=== PATIENT | female | born 1985 | race Two or more races ===

== ENCOUNTER 2018-06-29 17:15 | Observation (INO) | payer MEDICAID, SELFPAY ==
[2018-06-29 17:18] VITALS: BP 129/76; PULSE 94; RESP 16; TEMP 37.1; O2SAT 96; BMI 40.0
--- NOTE | 2018-06-29 17:23 | ED.VIS.GEN ---
History of Present Illness Chief Complaint: General Illness Detail of Chief Complaint: Not able to care for self. Informant: - - Information from supply chain program manager, charge nurse and case management Onset: - - Apparently is undergoing cardiac catheterization at [facility], which is located in [facility]. 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 The home health service is unable to provide 24-hour supervision and reason patient presents to the emergency department Context: Sudden Onset - Reportedly sudden per home health service Timing: Continuous Quality: Inability to care for self Location: Home Current Severity: Moderate Maximum Severity: Moderate Worsened by: Absence of Relieved by: Not applicable Associated Symptoms: Not applicable Narrative: Patient is a 33-year-old woman who is cognitively impaired and has home health during the day for supervision. is at [facility] undergoing emergent cardiac catheterization. Home health services unable to provide 24-hour safety and care. Patient was brought to the emergency department for placement. Spoke with Martha, ER case management and patient will be a social admission. Prior similar symptoms: No Recent Illness/Hospitalization: No - Past Medical History (1) Traumatic brain injury Status: Chronic Past Medical History - Allergies and Home Meds Allergies/Adverse Reactions: Allergies albuterol Allergy (Verified 06/29/18 18:03) Anaphylaxis Penicillins Allergy (Verified 06/29/18 18:03) Anaphylaxis Past Medical History: - - [place] brain injury Lives: Spouse/ Significant Other Smoking Status: Never smoker Alcohol: None Review of Systems ROS: Unable to Obtain - She has no complaints. Patient was brought to the hospital for her safety and inability of halfway health to provide supervision and care until is discharged from facility in [facility]. Physical Exam Vital Signs/Narrative: Vital Signs Temp Pulse Resp BP Pulse Ox 06/29/18 17:18 98.7 F 94 16 129/76 H 96 General: Well nourished, Well developed, Obese, No Acute Distress Eyes: Perrl, EOMI. Negative for: Pale conjunctiva, Scleral icterus ENT: Moist mucous membranes, No rhinorrhea, TM's clear Neck: Supple, Nontender, No lymphadenopathy, No JVD Cardiovascular: Regular rate, Regular rhythm, No murmurs, Normal S1, Normal S2 Respiratory: No distress, CTA bilaterally, Chest nontender Abdomen: Soft, Nontender, Nondistended, Normal bowel sounds Rectal: Deferred Extremities: Nontender, No edema Skin: Normal color, No rash Neurological: Alert, Cranial nerves II-XII grossly intact, Normal Strength, Normal Sensation. Negative for: Oriented x3 Psychological: - - Patient giggles inappropriately, patient appears anxious. Patient was tearful as well. Diagnostic/Tx/Re-eval - Medical Decision Making Spoke with case management. Attempt made at emergent placement for supervision. This was unsuccessful. Patient presents for admission to hospital for safety and supervision. The hospitalist was paged for observation status for safety. ED Disposition - Plan for ED Patient: Disposition: Acute Care Hospital [facility] Diagnosis: Traumatic brain injury, Disorientation, unspecified, Failure to thrive in adult
--- NOTE | 2018-06-29 17:25 | CM.ED ---
Social Work Assessment Referral Date: 06/29/18 Date of Assessment: 06/29/18 Informant: NURSING AND [facility] REPRESENTATIVES, JEMAL FRANK-DIRECTOR OF CORPORATE MARKETING [phone] AND PSYCHIATRY RESIDENT-STEPH SABILLON [phone]. Reason for Consult: D/C PLANNING/RESPITE CARE Information obtained from: JEMAL FRANK AND STEPH SABILLON WITH [facility] WA[facility]. Living Arrangements: PATIENT LIVES HOME WITH , AMITA YOUNGBLOOD [phone]. Employment/Financial: DISABLED Supports: PATIENT HAS SUPPORT FROM AND WAIVER SERVICES. Social/Family Stressors: PER STEPH SABILLON, WAS EMERGENTLY ADMITTED THIS DAY TO [facility] FOR HEART CATH. PATIENT WITH HX OF TBI AND IS UNABLE TO STAY IN THE HOME WITHOUT 24 HOUR SUPERVISION. Mental Health History: UNKNOWN AT THIS TIME Substance Abuse History: UNKNOWN AT THIS TIME Interventions: UPPER CUTTER OUT ASSESSMENT CALL TO [facility] TO DISCUSS CASE AND PLAN OF CARE Assessment: WHILE PATIENT WAS EN ROUTE TO HOSPITAL, NURSING RECEIVED CALL FROM [facility] INFORMING THAT PATIENT IS NEEDING ADMISSION D/T COGNITIVE ISSUES AND UNABLE TO SAFELY D/C BACK HOME ALONE. NURSE WAS INFORMED IS IN THE HOSPITAL FOR HEART CATH AND PATIENT REQUIRES 24 HOUR SUPERVISION. THIS WORKER CALLED [facility] AND WAS PUT IN CONTACT WITH PATIENT'S DIRECTOR OF CORPORATE MARKETING, JEMAL FRANK. PER JEMAL, IT IS EMERGENT THAT PATIENT BE PLACED AND THIS WAS THE RESPITE PLAN. REQUESTED TO SPEAK WITH A PSYCHIATRY RESIDENT REGARDING CONCERNS PATIENT WOULD NOT MEET CRITERIA FOR ADMISSION. SPOKE WITH [facility] PSYCHIATRY RESIDENT, STEPH SABILLON WHO REPORTED WAS UNABLE TO GET RESPITE SET UP FOR PATIENT IT WAS SO LATE IN THE DAY. STEPH SERRANO SPOKE WITH PATIENT'S PRIMARY CARE PHYSICIAN, DR. SHUKLA WHO WAS UNABLE TO DIRECTLY ADMIT PATIENT AND WAS HAPPY SHE WAS COMING TO THE ED FOR PLACEMENT. INFORMED STEPH WE WOULD BE UNABLE TO OBTAIN A LEVEL OF CARE AT THIS TIME. STEPH STATING PATIENT REQUIRES ADMISSION SHE IS UNABLE TO SAFELY RETURN HOME. CASE WAS DISCUSSED WITH CHAR FILTER TANK TENDER OF UPPER CUTTER OUT AND DR. HENNESSY. THIS WORKER ATTEMPTED TO CONTACT PATIENT'S , AMITA WITH PHONE NUMBER PROVIDED BY STEPH. MESSAGE LEFT AT THIS TIME. PLAN: ADMIT
--- NOTE | 2018-06-29 17:27 | ED.DCSUM_ITS ---
History of Present Illness Chief Complaint: General Illness Detail of Chief Complaint: Not able to care for self. Informant: - - Information from detailer, charge nurse and case management Onset: - - Apparently is undergoing cardiac catheterization at [facility], which is located in [facility]. 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 The home health service is unable to provide 24- hour supervision and reason patient presents to the emergency department Context: Sudden Onset - Reportedly sudden per home health service Timing: Continuous Quality: Inability to care for self Location: Home Current Severity: Moderate Maximum Severity: Moderate Worsened by: Absence of Relieved by: Not applicable Associated Symptoms: Not applicable Narrative: Patient is a 33-year-old woman who is cognitively impaired and has home health during the day for supervision. is at [facility] undergoing emergent cardiac catheterization. Home health services unable to provide 24-hour safety and care. Patient was brought to the emergency department for placement. Spoke with Martha, ER case management and patient will be a social admission. Prior similar symptoms: No Recent Illness/Hospitalization: No - Past Medical History (1) Traumatic brain injury Status: Chronic Past Medical History - Allergies and Home Meds Allergies/Adverse Reactions: Allergies albuterol Allergy (Verified 06/29/18 18:03) Anaphylaxis Penicillins Allergy (Verified 06/29/18 18:03) Anaphylaxis Past Medical History: - - [place] brain injury Lives: Spouse/ Significant Other Smoking Status: Never smoker Alcohol: None Review of Systems ROS: Unable to Obtain - She has no complaints. Patient was brought to the hospital for her safety and inability of custodial health to provide supervision and care until is discharged from facility in [facility]. Physical Exam Vital Signs/Narrative: Vital Signs Temp Pulse Resp BP Pulse Ox 06/29/18 17:18 98.7 F 94 16 129/76 H 96 General: Well nourished, Well developed, Obese, No Acute Distress Eyes: Perrl, EOMI. Negative for: Pale conjunctiva, Scleral icterus ENT: Moist mucous membranes, No rhinorrhea, TM's clear Neck: Supple, Nontender, No lymphadenopathy, No JVD Cardiovascular: Regular rate, Regular rhythm, No murmurs, Normal S1, Normal S2 Respiratory: No distress, CTA bilaterally, Chest nontender Abdomen: Soft, Nontender, Nondistended, Normal bowel sounds Rectal: Deferred Extremities: Nontender, No edema Skin: Normal color, No rash Neurological: Alert, Cranial nerves II-XII grossly intact, Normal Strength, Normal Sensation. Negative for: Oriented x3 Psychological: - - Patient giggles inappropriately, patient appears anxious. Patient was tearful as well. Diagnostic/Tx/Re-eval - Medical Decision Making Spoke with case management. Attempt made at emergent placement for supervision. This was unsuccessful. Patient presents for admission to hospital for safety and supervision. The hospitalist was paged for observation status for safety. ED Disposition - Plan for ED Patient: Disposition: Acute Care Hospital [facility] Diagnosis: Traumatic brain injury, Disorientation, unspecified, Failure to thrive in adult
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
[2018-06-29 18:55] VITALS: BMI 38.9
[2018-06-29 19:01] VITALS: BP 129/73; PULSE 98; RESP 16; TEMP 36.6; O2SAT 96
[2018-06-29] MEDS: Acetaminophen 325 MG Tablet 650 MG PO (20:06)
[2018-06-29 20:20] LABS: Absolute Lymphocyte Count 2.62 X10^3/ul (0.83-4.51); Absolute Neutrophil Count 8.1 X10^3/uL (2.0-7.7); Basophil# 0.05 X10^3/uL; Basophil% 0.4 % (0-1); Eosinophil# 1.14 X10^3/uL; Eosinophils% 8.7 % (0-5); Hematocrit 42.5 % (37-47); Hemoglobin 13.8 g/dl (12.0-15.0); Lymphocyte # 2.62 X10^3/ul (4.0); Lymphocyte % 20.1 % (19-41); Mean Corp Hgb Conc 32.5 g/gl (32-36); Mean Corpuscular Hgb 30.7 pg (27.0-32.0); Mean Corpuscular Volume 94.7 fL (81-99); Mean Platelet Vol. 10.7 fl (6.2-12.0); Monocyte# 0.96 X10^3/uL; Monocyte% 7.4 % (0-10); Neutrophil % 62.2 % (47-70); Platelet Count 236 K/mm3 (150-450); RBC Distribution Width CV 13.6 % (11.6-14.6); RBC Distribution Width SD 46.7 fl (35.1-43.9); Red Blood Count 4.49 M/mm3 (4.2-5.4)
[2018-06-29 20:21] LABS: POSITIVE COUNT NO; POSITIVE DIFFERENTIAL NO; POSITIVE MORPHOLOGY NO
[2018-06-29 20:30] LABS: Anion Gap 5 (5-15); BUN 11 mg/dL (7-18); BUN/Creat Ratio 13.8 RATIO (10-20); Calcium,Total 8.1 mg/dL (8.5-10.1); Chloride 106 mmol/L (98-107); EST Glomerular Filtration Rate 87 mL/min (>60); Est Glom Filt Rate - Afr Amer 106 mL/min (>60); Estimated Creatinine Clearance 96.36 ml/min; Glucose 109 mg/dL (74-106); Potassium 4.2 mmol/L (3.5-5.1); Sodium Level 138 mmol/L (136-145)
[2018-06-29] MEDS: Ziprasidone HCl 20 MG Capsule 80 MG PO (21:40)
[2018-06-29] MEDS: Divalproex Sodium 250 MG Tablet 1000 MG PO (21:41)
[2018-06-29] MEDS: clonazePAM 1 MG Tablet PO (21:41)
[2018-06-29 21:55] VITALS: BP 129/79; PULSE 103; RESP 16; TEMP 36.8; O2SAT 95
[2018-06-30 05:43] VITALS: BP 126/81; PULSE 93; RESP 14; TEMP 36.2; O2SAT 94
--- NOTE | 2018-06-30 06:57 | NURSING ---
Santosh, , called in @ this time for update on . States he had a heart cath yesterday and no blockage was found. He is having an echo this AM and if all is OK will be discharged today. He would like to pick his up and not have her go to a [facility]. multifocal button generator updated.
--- NOTE | 2018-06-30 08:51 | NURSING ---
into pt's room as pt upset and demanding to talk with the physician states she waNts to see him now or she's going to go find him in the hospital. pt upset stating waNting to go home. Message sent to regarding this. then attempted to de-esculate situation. verbal conversation had for approximately 15min and assisted with calling pt's for her. emotional. tearful. emotional support given. pt more cooperate and relaxed.
--- NOTE | 2018-06-30 09:32 | PCM.PN.HOSP ---
Patient Problems: Active and Suspected Problems (Last Updated 06/29/18 @ 18:36 by Bairon Mendoza DO) Disorientation, unspecified (Acute) Failure to thrive in adult (Acute) Subjective: She is currently at her baseline doing well. No issues overnight Vitals/I&O's: Vital Signs Temp Pulse Resp BP Pulse Ox 97.2 F L 93 14 126/81 H 94 06/30/18 05:43 06/30/18 05:43 06/30/18 05:43 06/30/18 05:43 06/30/18 05:43 Oxygen Delivery Method Room Air Weight: 249 lb Body Mass Index (BMI) 38.9 Intake and Output for Last 24 Hours 06/28/18 06/29/18 06/30/18 23:59 23:59 23:59 Intake Total 500 / 500 300 / 300 Output Total 100 / 100 200 / 200 Balance 400 / 400 100 / 100 General: Alert, Oriented x3, Cooperative, No apparent distress HEENT: Atraumatic, PERRLA, EOMI, Normocephalic Oral: Moist Mucosa Neck: Supple, No JVD, Trachea Midline Lungs: Clear to auscultation, Normal air movement, No rhonchi, No wheeze, No rales Cardiovascular: Regular rate, Regular Rhythm, Normal S1, Normal S2, No murmurs Abdomen: Soft, Non Tender, Non-Distended, No Hepato-splenomegaly Extremities: No edema, Capillary Refill Less than 3 Seconds Skin: No rashes, No breakdown Neurological: Neuro grossly intact, Sensory exam intact to light touch and pain Psych/Mental Status: Normal Affect, Appropriate Laboratory Results 06/29/18 20:00: WBC 13.0 H, RBC 4.49, Hgb 13.8, Hct 42.5, MCV 94.7, MCH 30.7, MCHC 32.5, RDW 13.6, RDW Differential 46.7 H, Plt Count 236, MPV 10.7, Immature Gran % (Auto) 1.200 H, Neut % (Auto) 62.2, Lymph % (Auto) 20.1, [place] % (Auto) 7.4, Eos % (Auto) 8.7 H, Baso % (Auto) 0.4, Absolute Neuts (auto) 8.1 H, Absolute Lymphs (auto) 2.62, Total Counted Not Reportable 06/29/18 20:00: Sodium 138, Potassium 4.2, Chloride 106, Carbon Dioxide 27.0, Anion Gap 5, BUN 11, Creatinine 0.80, Estim Creat Clear Calc 96.36, Est GFR (MDRD) Af Amer 106, Est GFR (MDRD) Non-Af 87, BUN/Creatinine Ratio 13.8, Glucose 109 H, Calcium 8.1 L Current Medications Acetaminophen (Tylenol) 650 mg PO Q6H PRN PRN PRN Reason: Mild Pain (1-3)/Temp > 100.7 F Last Admin: 06/29/18 20:06 Dose: 650 mg Albuterol Sulfate (Ventolin Aerosols) 2.5 mg INHALATION Q2H PRN PRN PRN Reason: SOB/WHEEZING Clonazepam (Klonopin) 1 mg PO BID [facility] Last Admin: 06/29/18 21:41 Dose: 1 mg Dextrose (D50w Syringe) 0 gm IV X1 PRN; Protocol PRN Reason: Hypoglycemia Divalproex Sodium (Depakote) 1,000 mg PO BID [facility] Last Admin: 06/29/18 21:41 Dose: 1,000 mg Escitalopram Oxalate (Lexapro) 20 mg PO DAILY [facility] Fluoxetine HCl (Prozac) 20 mg PO DAILY [facility] Glucagon () 1 mg IM .X1 PRN PRN Reason: Hypoglycemia Ibuprofen (Motrin) 600 mg PO Q6H PRN PRN PRN Reason: MILD PAIN (1-3/10) Lorazepam (Ativan) 0.5 mg PO Q8H PRN PRN PRN Reason: ANXIETY Ondansetron HCl (Zofran) 4 mg IV Q8H PRN PRN PRN Reason: NAUSEA/VOMITING Polyethylene Glycol (Miralax) 17 gm PO DAILY [facility] Ziprasidone (Geodon) 80 mg PO BID [facility] Last Admin: 06/29/18 21:40 Dose: 80 mg Medical Necessity - Tobacco Use Smoking Status: Never smoker Assessment/Plan All Active Problems (Last Updated 06/29/18 @ 18:36 by Bairon Mendoza DO) Disorientation, unspecified (Acute) Failure to thrive in adult (Acute) 1. Inability to complete ADLs/traumatic brain injury/anxiety/depression -She usually has 8-hour nursing during the day and her takes care of her at night, however he is currently in the hospital getting a heart procedure heart evaluation -She is unable to complete ADLs at home unsupervised -We will continue with her Lexapro, Depakote, Prozac, clonazepam 2. Dysuria -Urinalysis and urine culture are pending to be collected -If positive will start on antibiotic and this may hopefully allow her to improve and functionality if UTI was the cause of her derangement DVT: Ambulation Code Visit OBSV E&M: 48390 Initial observation care L2
--- NOTE | 2018-06-30 09:35 | PN_ITS ---
Patient Problems: Active and Suspected Problems (Last Updated 06/29/18 @ 18:36 by Bairon Mendoza DO) Disorientation, unspecified (Acute) Failure to thrive in adult (Acute) Subjective: She is currently at her baseline doing well. No issues overnight Vitals/I&O's: Vital Signs Temp Pulse Resp BP Pulse Ox 97.2 F L 93 14 126/81 H 94 06/30/18 05:43 06/30/18 05:43 06/30/18 05:43 06/30/18 05:43 06/30/18 05:43 Oxygen Delivery Method Room Air Weight: 249 lb Body Mass Index (BMI) 38.9 Intake and Output for Last 24 Hours 06/28/18 06/29/18 06/30/18 23:59 23:59 23:59 Intake Total 500 / 500 300 / 300 Output Total 100 / 100 200 / 200 Balance 400 / 400 100 / 100 General: Alert, Oriented x3, Cooperative, No apparent distress HEENT: Atraumatic, PERRLA, EOMI, Normocephalic Oral: Moist Mucosa Neck: Supple, No JVD, Trachea Midline Lungs: Clear to auscultation, Normal air movement, No rhonchi, No wheeze, No rales Cardiovascular: Regular rate, Regular Rhythm, Normal S1, Normal S2, No murmurs Abdomen: Soft, Non Tender, Non-Distended, No Hepato-splenomegaly Extremities: No edema, Capillary Refill Less than 3 Seconds Skin: No rashes, No breakdown Neurological: Neuro grossly intact, Sensory exam intact to light touch and pain Psych/Mental Status: Normal Affect, Appropriate Laboratory Results 06/29/18 20:00: WBC 13.0 H, RBC 4.49, Hgb 13.8, Hct 42.5, MCV 94.7, MCH 30.7, MCHC 32.5, RDW 13.6, RDW Differential 46.7 H, Plt Count 236, MPV 10.7, Immature Gran % (Auto) 1.200 H, Neut % (Auto) 62.2, Lymph % (Auto) 20.1, [place] % (Auto) 7.4, Eos % (Auto) 8.7 H, Baso % (Auto) 0.4, Absolute Neuts (auto) 8.1 H, Absolute Lymphs (auto) 2.62, Total Counted Not Reportable 06/29/18 20:00: Sodium 138, Potassium 4.2, Chloride 106, Carbon Dioxide 27.0, Anion Gap 5, BUN 11, Creatinine 0.80, Estim Creat Clear Calc 96.36, Est GFR (MDRD) Af Amer 106, Est GFR (MDRD) Non-Af 87, BUN/Creatinine Ratio 13.8, Glucose 109 H, Calcium 8.1 L Current Medications Acetaminophen (Tylenol) 650 mg PO Q6H PRN PRN PRN Reason: Mild Pain (1-3)/Temp > 100.7 F Last Admin: 06/29/18 20:06 Dose: 650 mg Albuterol Sulfate (Ventolin Aerosols) 2.5 mg INHALATION Q2H PRN PRN PRN Reason: SOB/WHEEZING Clonazepam (Klonopin) 1 mg PO BID [facility] Last Admin: 06/29/18 21:41 Dose: 1 mg Dextrose (D50w Syringe) 0 gm IV X1 PRN; Protocol PRN Reason: Hypoglycemia Divalproex Sodium (Depakote) 1,000 mg PO BID [facility] Last Admin: 06/29/18 21:41 Dose: 1,000 mg Escitalopram Oxalate (Lexapro) 20 mg PO DAILY [facility] Fluoxetine HCl (Prozac) 20 mg PO DAILY [facility] Glucagon () 1 mg IM .X1 PRN PRN Reason: Hypoglycemia Ibuprofen (Motrin) 600 mg PO Q6H PRN PRN PRN Reason: MILD PAIN (1-3/10) Lorazepam (Ativan) 0.5 mg PO Q8H PRN PRN PRN Reason: ANXIETY Ondansetron HCl (Zofran) 4 mg IV Q8H PRN PRN PRN Reason: NAUSEA/VOMITING Polyethylene Glycol (Miralax) 17 gm PO DAILY [facility] Ziprasidone (Geodon) 80 mg PO BID [facility] Last Admin: 06/29/18 21:40 Dose: 80 mg Medical Necessity - Tobacco Use Smoking Status: Never smoker Assessment/Plan All Active Problems (Last Updated 06/29/18 @ 18:36 by Bairon Mendoza DO) Disorientation, unspecified (Acute) Failure to thrive in adult (Acute) 1. Inability to complete ADLs/traumatic brain injury/anxiety/depression -She usually has 8-hour nursing during the day and her takes care of her at night, however he is currently in the hospital getting a heart procedure heart evaluation -She is unable to complete ADLs at home unsupervised -We will continue with her Lexapro, Depakote, Prozac, clonazepam 2. Dysuria -Urinalysis and urine culture are pending to be collected -If positive will start on antibiotic and this may hopefully allow her to improve and functionality if UTI was the cause of her derangement DVT: Ambulation Code Visit OBSV E&M: 26649 Initial observation care L2
[2018-06-30] MEDS: Divalproex Sodium 250 MG Tablet 1000 MG PO ×2 (10:02→23:25)
[2018-06-30] MEDS: Polyethylene Glycol 3350 17 GM PACKET PO (10:03)
[2018-06-30] MEDS: Escitalopram Oxalate 20 MG Tablet PO (10:03)
[2018-06-30] MEDS: clonazePAM 1 MG Tablet PO ×2 (10:03→23:33)
[2018-06-30] MEDS: Ziprasidone HCl 20 MG Capsule 80 MG PO ×2 (10:03→23:25)
[2018-06-30] MEDS: FLUoxetine 20 MG Capsule PO (10:03)
[2018-06-30 11:33] VITALS: BP 121/75; PULSE 88; RESP 16; TEMP 36.6; O2SAT 99
[2018-06-30] MEDS: LORazepam 0.5 MG Tablet PO (11:42)
[2018-06-30] MEDS: Acetaminophen 325 MG Tablet 650 MG PO (11:42)
--- NOTE | 2018-06-30 13:18 | CASEMGMT ---
SW met w/pt briefly, she states her daddy is coming to pick her up. SW asked for clarification, she means her is coming here. She confirms is being discharged from the hospital and coming straight here to pick her up. SW inquired about her children, she states that the children are with their aunty. It is anticipated pt is going home today with . Should pt still be here Monday, SW will follow up on Monday for [facility], since pt cannot care for herself fully at home. However at this time it is anticipated pt will be able to return home w/ today. JORGE Dang, LECTURER IN COMPUTER SCIENCE
[2018-06-30 16:21] VITALS: BP 138/87; PULSE 82; RESP 16; TEMP 36.6; O2SAT 99
--- NOTE | 2018-06-30 17:52 | NURSING ---
left voicemail for lexie at pt's request, anxious.
[2018-06-30] MEDS: LORazepam 1 MG Tablet PO (20:14)
[2018-06-30 20:19] VITALS: BP 117/81; PULSE 87; RESP 16; TEMP 36.6; O2SAT 96
[2018-06-30 23:15] VITALS: BP 132/67; PULSE 83; RESP 16; O2SAT 98
[2018-07-01 00:33] LABS: Mucous, Urine 0 SEEN /hpf (<or=2+); Squamous Epithelial Cells - UA 0 SEEN /hpf (5-10)
[2018-07-01] MEDS: Ibuprofen 600 MG Tablet PO (00:40)
[2018-07-01 01:30] LABS: Color, Urine Yellow (Yellow); Glucose, Dipstick Normal (Normal); Ketone-Dipstick Negative (Negative); Leukocyte Esterase-Dipstick 500 /ul (Negative); Nitrite-Dipstick Negative (Negative); Occult Blood-Urine 50 /ul (Negative); Protein-Dipstick Negative (Negative); Specific Gravity, Urine 1.015 (1.002-1.030); Urine Bilirubin Dipstick Negative (Negative); Urine Clarity Sl. Cloudy (Clear); Urine Urobilinogen Normal (Normal)
[2018-07-01 02:09] LABS: Bacteria 1+ /hpf (None Seen); Red Blood Cells-Urine 0-5 SEEN /hpf (0-5); White Blood Cells 25-50 SEEN /hpf (0-5)
[2018-07-01 06:40] VITALS: BP 129/70; PULSE 91; RESP 18; TEMP 36.6; O2SAT 95
--- NOTE | 2018-07-01 07:16 | DCINST_ITS ---
- Discharge Diagnoses Current Active Problems: Current Active and Chronic Problems (Last Updated 06/29/18 @ 18:36 by Bairon Mendoza DO) Traumatic brain injury (Chronic) Disorientation, unspecified (Acute) Failure to thrive in adult (Acute) You will use the following diet at home:: Regular Your food should be the consistency of: Regular Your liquids should be the consistency of: Regular/Thin Discharge Activity: Return to Normal Activity Call your doctor if you observe: Fever of 101 or Higher, Shortness of breath, Dizziness, Fainting spells, Swelling in the ankles, Chest pain, Increased palpitations (irregular heartbeat) Allergies/Adverse Reactions: Allergies albuterol Allergy (Verified 06/29/18 18:03) Anaphylaxis Penicillins Allergy (Verified 06/29/18 18:03) Anaphylaxis Medications to take at Discharge Acetaminophen [Tylenol Tablet] 650 mg PO Q6H PRN PRN 06/29/18 Albuterol IH (ProAir) [Proair Hfa] 2 puff INHALATION Q6H PRN PRN 06/29/18 Clonazepam 1 mg PO BID 06/29/18 Divalproex Sodium [Depakote] 1,000 mg PO BID 06/29/18 Escitalopram Oxalate [Lexapro] 20 mg PO DAILY 06/29/18 Fluoxetine [Prozac] 20 mg PO DAILY 06/29/18 Polyethylene Glycol 3350 [Miralax] 17 gm PO DAILY 06/29/18 Ziprasidone HCl 80 mg PO BID 06/29/18 Nitrofurantoin Macrocrystals [Macrobid] 100 mg PO Q12 #10 capsule 07/01/18 The following prescriptions were given: Nitrofurantoin Macrocrystals [Macrobid] 100 mg PO Q12 #10 capsule Primary Care Physician: Byron Trujillo MD [Primary Care Provider] - Please follow up with your Primary Care Physician in: 3-5 days Test Results: Test results from this visit will be discussed in further detail at your follow- up appointment, if applicable.
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
[2018-07-01 09:17] VITALS: BP 132/72; PULSE 98; RESP 18; TEMP 36.3; O2SAT 98
[2018-07-01] MEDS: Divalproex Sodium 250 MG Tablet 1000 MG PO (09:19)
[2018-07-01] MEDS: Polyethylene Glycol 3350 17 GM PACKET PO (09:19)
[2018-07-01] MEDS: Ziprasidone HCl 20 MG Capsule 80 MG PO (09:19)
[2018-07-01] MEDS: Escitalopram Oxalate 20 MG Tablet PO (09:19)
[2018-07-01] MEDS: clonazePAM 1 MG Tablet PO (09:19)
[2018-07-01] MEDS: FLUoxetine 20 MG Capsule PO (09:19)
[2018-07-01] MEDS: LORazepam 1 MG Tablet PO (12:25)
== END 2018-07-01 12:43 | disposition home or self-care (01) ==
LOC: ED 18:15 → MS3 18:29
PROVIDERS: Emergency Provider Emergency Medicine; Family Provider Internal Medicine; PCP Internal Medicine; Visit Provider Family Medicine
DX: R41.0 Disorientation, unspecified (principal); R62.7 Adult failure to thrive; N39.0 Urinary tract infection, site not specified; Z68.39 Body mass index [BMI] 39.0-39.9, adult; Z87.820 Personal history of traumatic brain injury; R32 Unspecified urinary incontinence; R30.0 Dysuria; Z79.899 Other long term (current) drug therapy
CPT/HCPCS: 36415; 80048; 81001; 85025; 87077; 87086; 87088; 87186; 97162; 97165; 99218; 99283; G0378

== ENCOUNTER 2018-08-06 13:25 | Emergency (ER) | payer MEDICAID, SELFPAY ==
[2018-06-29 18:55] VITALS: BMI 38.9
[2018-08-06] VITALS (8 sets, daily range): BP systolic 149–152; BP diastolic 73–97; PULSE 80–99; RESP 15–19; TEMP 36.2; O2SAT 94–99; BMI 29.5
--- NOTE | 2018-08-06 14:23 | ED.VISSUMM ---
- ER Visit Summary Date of Service: 08/06/18 Chief Complaint: Depressed and suicidal ideation History of Present Illness: The patient is a 33 F history of depression and asthma. States that she is been depressed for at least the last 3 weeks. She started to have thoughts of harming herself. She does not have a specific plan but says if she did hurt herself she would lacerat her wrist. She denies any recent psychiatric admissions. She denies any prior overdoses or prior suicide attempts.. Physical Examination: Patient is emotional and tearful at times. Vital signs are stable and afebrile. She is in no acute distress. H EENT exam unremarkable. No signs of trauma. Dry reactive light. Normal speech. No facial or head trauma. Neck nontender no trauma. Lungs to auscultation bilaterally. Heart regular rhythm no murmur. Abdomen soft nontender normal bowel sounds no peritoneal signs. She is moving all 4 extremities. Neurovascular intact. There is no signs of any trauma or lacerations. Neurologically she is awake and alert with no focal motor deficits. No signs of toxidrome. No smell of alcohol. Test Results: CBC White count 12.6. Hemoglobin 13. Chemistries normal. Normal creatinine gap. Serum test negative. Tox screen negative. Alcohol negative. Emergency Department Course and Treatment: ED mental health evaluation labs. She will need a crisis evaluation. Repeat exam at 16 12 PM patient doing well. Unchanged. She did discuss with the hospital social services manager who feel she does need a crisis evaluation and I would agree with that. Treatment Plan: Crisis evaluation then discussed with the ER physician final disposition. Patient will be checked out, the afternoon ER physicians. Disposition: [] Impression: Acute on chronic depression Suicidal ideation This note was generated with [employer] software. It may contain incorrect words, spelling, and punctuation that were not noted in review of the chart prior to signing ED Disposition - Plan for ED Patient: Referrals: Byron Trujillo MD [Primary Care Provider] -
--- NOTE | 2018-08-06 14:26 | ED.DCSUM_ITS ---
- ER Visit Summary Date of Service: 08/06/18 Chief Complaint: Depressed and suicidal ideation History of Present Illness: The patient is a 33 F history of depression and asthma. States that she is been depressed for at least the last 3 weeks. She started to have thoughts of harming herself. She does not have a specific plan but says if she did hurt herself she would lacerat her wrist. She denies any recent psychiatric admissions. She denies any prior overdoses or prior suicide attempts.. Physical Examination: Patient is emotional and tearful at times. Vital signs are stable and afebrile. She is in no acute distress. H EENT exam unremarkable. No signs of trauma. Dry reactive light. Normal speech. No facial or head trauma. Neck nontender no trauma. Lungs to auscultation bilaterally. Heart regular rhythm no murmur. Abdomen soft nontender normal bowel sounds no peritoneal signs. She is moving all 4 extremities. Neurovascular intact. There is no signs of any trauma or lacerations. Neurologically she is awake and alert with no focal motor deficits. No signs of toxidrome. No smell of alcohol. Test Results: CBC White count 12.6. Hemoglobin 13. Chemistries normal. Normal creatinine gap. Serum test negative. Tox screen negative. Alcohol negative. Emergency Department Course and Treatment: ED mental health evaluation labs. She will need a crisis evaluation. Repeat exam at 16 12 PM patient doing well. Unchanged. She did discuss with the hospital outreach and education social worker who feel she does need a crisis evaluation and I would agree with that. Treatment Plan: Crisis evaluation then discussed with the ER physician final disposition. Patient will be checked out, the afternoon ER physicians. Disposition: [] Impression: Acute on chronic depression Suicidal ideation This note was generated with [employer] software. It may contain incorrect words, spelling, and punctuation that were not noted in review of the chart prior to signing ED Disposition - Plan for ED Patient: Referrals: Byron Trujillo MD [Primary Care Provider] -
[2018-08-06 14:27] LABS: Absolute Lymphocyte Count 2.34 X10^3/ul (0.83-4.51); Absolute Neutrophil Count 7.9 X10^3/uL (2.0-7.7); Basophil# 0.04 X10^3/uL; Basophil% 0.3 % (0-1); Eosinophil# 0.81 X10^3/uL; Eosinophils% 6.5 % (0-5); Hematocrit 41.7 % (37-47); Hemoglobin 13.6 g/dl (12.0-15.0); Lymphocyte # 2.34 X10^3/ul (4.0); Lymphocyte % 18.6 % (19-41); Mean Corp Hgb Conc 32.6 g/gl (32-36); Mean Corpuscular Hgb 30.4 pg (27.0-32.0); Mean Corpuscular Volume 93.1 fL (81-99); Mean Platelet Vol. 10.5 fl (6.2-12.0); Monocyte# 1.25 X10^3/uL; Neutrophil # 7.93 X10^3/uL (2.7-7.7); Neutrophil % 63.2 % (47-70); POSITIVE COUNT NO; POSITIVE DIFFERENTIAL NO; POSITIVE MORPHOLOGY NO; Platelet Count 253 K/mm3 (150-450); RBC Distribution Width CV 13.7 % (11.6-14.6); RBC Distribution Width SD 46.1 fl (35.1-43.9); Red Blood Count 4.48 M/mm3 (4.2-5.4); White Blood Count 12.6 K/mm3 (4.4-11.0)
[2018-08-06 14:42] LABS: Anion Gap 4 (5-15); BUN 7 mg/dL (7-18); BUN/Creat Ratio 12.5 RATIO (10-20); Calcium,Total 8.4 mg/dL (8.5-10.1); Chloride 107 mmol/L (98-107); Creatinine, Serum 0.56 mg/dL (0.55-1.02); EST Glomerular Filtration Rate 131 mL/min (>60); Est Glom Filt Rate - Afr Amer 159 mL/min (>60); Estimated Creatinine Clearance 147.93 ml/min; Glucose 104 mg/dL (74-106); Sodium Level 138 mmol/L (136-145)
[2018-08-06 14:52] LABS: Internal QC Validated? YES +Cl - CLEAR BKGD; Pregnancy, Serum, hCG Quali. NEGATIVE Negative
[2018-08-06 15:53] LABS: Amphetamine Urine VISTA NEGATIVE (<1000 ng/mL); Barbiturate Urine VISTA NEGATIVE (< 200 ng/mL); Benzodiazepine Urine VISTA NEGATIVE (< 200 ng/mL); Cocaine Urine VISTA NEGATIVE (< 300 ng/mL); Ecstacy Urine VISTA NEGATIVE (< 500 ng/mL); Methadone Urine VISTA NEGATIVE (< 300 ng/mL); PCP Urine VISTA NEGATIVE (< 25 ng/mL); THC Urine VISTA NEGATIVE (< 50 ng/mL); Vista UDS pH Range 6
[2018-08-06] MEDS: Ziprasidone HCl 20 MG Capsule 80 MG PO (20:44)
[2018-08-06] MEDS: clonazePAM 1 MG Tablet PO (20:57)
[2018-08-06] MEDS: Divalproex Sodium 250 MG Tablet 1000 MG PO (22:13)
[2018-08-07 00:23] VITALS: PULSE 87; RESP 16; O2SAT 98
[2018-08-07] MEDS: Acetaminophen 325 MG Tablet 650 MG PO (00:49)
[2018-08-07 02:00] LABS: Bacteria 0 SEEN /hpf (None Seen); Mucous, Urine 0 SEEN /hpf (<or=2+); Red Blood Cells-Urine 0 SEEN /hpf (0-5)
[2018-08-07 02:14] LABS: Color, Urine Yellow (Yellow); Glucose, Dipstick 50 mg/dl (Normal); Ketone-Dipstick Negative (Negative); Leukocyte Esterase-Dipstick 25 /ul (Negative); Nitrite-Dipstick Negative (Negative); Occult Blood-Urine Negative /ul (Negative); Protein-Dipstick Negative (Negative); Urine Bilirubin Dipstick Negative (Negative); Urine Clarity Sl. Cloudy (Clear); Urine Urobilinogen Normal (Normal)
[2018-08-07 02:17] LABS: Squamous Epithelial Cells - UA 5-10 SEEN /hpf (5-10); White Blood Cells 0-5 SEEN /hpf (0-5)
[2018-08-07 02:20] LABS: Valproic Acid (Depakene) Level 58 ug/mL (50-100)
[2018-08-07 02:23] VITALS: BP 144/70; PULSE 96; RESP 16; O2SAT 98
[2018-08-07 02:45] LABS: AST(SGOT) 16 U/L (15-37); Alanine Aminotransfer ALT/SGPT 27 U/L (13-56); Albumin, Serum 3.2 g/dL (3.2-5.0); Alkaline Phosphatase 97 U/L (45-117); Bilirubin, Direct 0.06 mg/dL (0.00-0.30); Globulin 3.8 g/dL (2.2-4.2)
--- NOTE | 2018-08-07 02:49 | EKG12_ITS ---
Test Reason : MHC Blood Pressure : / mmHG Vent. Rate : 096 BPM Atrial Rate : 096 BPM P-R Int : 146 ms QRS Dur : 064 ms QT Int : 358 ms P-R-T Axes : 035 024 019 degrees QTc Int : 452 ms Normal sinus rhythm Nonspecific ST abnormality Abnormal ECG Confirmed by ROMMEL JAIN, ROCHELLE ([id number]), news videotape editor BROOK MOORE ([id number]) on 08/08/2018 1:33:26 PM Referred By: FRANCISCO Confirmed By:ROCHELLE CARNEY MD
[2018-08-07 06:10] VITALS: BP 116/75; PULSE 99; RESP 18; TEMP 36.7; O2SAT 96
[2018-08-07 06:56] VITALS: BP 116/75; PULSE 99; RESP 18; TEMP 36.7; O2SAT 96
[2018-08-07 08:03] VITALS: BP 131/73; PULSE 93; RESP 14; O2SAT 95
[2018-08-07] MEDS: Divalproex Sodium 250 MG Tablet 1000 MG PO (08:05)
[2018-08-07 10:00] VITALS: BP 131/79; PULSE 83; RESP 14; O2SAT 99
--- NOTE | 2018-08-07 10:03 | ED.RN ---
ELIZABETH IN ED TO TRANSPORT. PT CALLING HER TO LET HIM KNOW SHE IS LEAVING.
== END 2018-08-07 10:16 | disposition home or self-care (01) ==
LOC: ED 14:07
PROVIDERS: Emergency Medicine; Emergency Provider Emergency Medicine; Family Provider Internal Medicine; PCP Internal Medicine
DX: F32.9 Major depressive disorder, single episode, unspecified (principal); R45.851 Suicidal ideations; J45.909 Unspecified asthma, uncomplicated; Z79.899 Other long term (current) drug therapy; Z72.0 Tobacco use
CPT/HCPCS: 80048; 80076; 80164; 80307; 80320; 81001; 84703; 85025; 93005; 99284; G0480

== ENCOUNTER 2019-04-23 16:45 | Emergency (ER) | payer MEDICAID, SELFPAY ==
[2018-08-06 13:27] VITALS: BMI 29.5
[2019-04-23 16:46] VITALS: BP 124/61; PULSE 78; RESP 18; TEMP 36.3; O2SAT 96; BMI 47.3
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
[2019-04-23] MEDS: Acetaminophen 325 MG Tablet 1000 MG PO (17:21)
--- NOTE | 2019-04-23 18:00 | CM.ED ---
SOCIAL WORK INFORMANT: NURSERONNA REASON FOR REFERRAL: D/C PLANNING INFORMED BY NURSING, PATIENT SENT IN BY [facility] BY CAREGIVER AND REQUIRING RESPITE CARE-DANIELA MUELLER. PATIENT WITH HISTORY OF TBI. PATIENT'S HAD CHANGE IN STATUS AND REQUIRED HOSPITALIZATION. PATIENT KNOWN TO THIS WORKER FROM PREVIOUS HOSPITAL VISIT. CALL TO PATIENT'S [employer] TECHNICIAN, JEMAL ([phone]) NO ANSWER, LEFT MESSAGE. CALL TO [facility], SPOKE WITH NURSE, OPAL. PER OPAL, HAS BED FOR PATIENT AND DID NOT UNDERSTAND WHY PATIENT WAS BROUGHT TO ED FACILITY WAS AWARE PATIENT WAS COMING THIS DAY. UPDATED STAFF ON THE ABOVE. MANAGER [place] TO ARRANGE TRANSPORT FOR PATIENT TO [facility]. PLAN: DANIELA OLIVAS, COLD WORK OPERATOR, STAFFING RN.
--- NOTE | 2019-04-23 18:28 | ED.RN ---
REPORT TO OPAL, NURSE AT [facility].
--- NOTE | 2019-04-24 10:46 | CM.ED ---
Social Work Voicemail received from patient high risk case manager, Prudence requesting return phone call with update on patient disposition. Telephone call to Prudence ([phone]). Voicemail left updating Prudence that patient discharged to [facility]. Michelle OSBORNE, RENE
== END 2019-04-23 19:28 | disposition home or self-care (01) ==
LOC: ED 17:14
PROVIDERS: Emergency Provider Emergency Medicine; PCP Internal Medicine
DX: M54.5 Low back pain (principal); G89.29 Other chronic pain; J45.909 Unspecified asthma, uncomplicated; F32.9 Major depressive disorder, single episode, unspecified; Z87.820 Personal history of traumatic brain injury; Z79.899 Other long term (current) drug therapy; Z72.0 Tobacco use
CPT/HCPCS: 99282